=== PATIENT | female | born 1940 | race Caucasian/White ===

== ENCOUNTER 2016-10-29 11:10 | Emergency (ER) | payer MEDICARE ==
[~2016-10-29] VITALS: Ht 162.6 cm; Wt 72.5 kg
[~2016-10-29 11:10] MED LIST: ALBU0.63 NEB; CETI1TAB21 PO; FOLI200T OR; MECL25 PO; METH-60 XX; PRED5 PO; SYMB80AE INH
[2016-10-29 11:12] VITALS: BP 153/70; PULSE 90; RESP 20; TEMP 97.8; O2SAT 93
--- NOTE | 2016-10-29 11:35 | PD ---
HPI Chief Complaint: Back/ Neck Pain or Injury Time Seen by Provider: 11:34 Travel History International Travel<30 days: No Contact w/Intl Traveler<30days: No Traveled to known affect area: No History of Present Illness HPI 76-year-old female with history of low back pain presents to emergency department requesting an MRI of her lower back. Patient states this has been ongoing for the last 3-4 weeks. She has had pain in her lower back that radiates into her right buttock and sometimes down her leg. She contacted her primary care provider and had an x-ray done earlier this week. She states that there was compression noted and she would like an MRI done at this did not tell her what she wanted here. He denies any saddle paresthesia, loss of bowel or bladder, or lower extremity weakness. No other symptoms to report. Patient does not recall trauma preceding the onset of her pain. PFSH Past Medical History Hx Anticoagulant Therapy: No Arthritis: Yes Asthma: Yes Autoimmune Disease: Yes (RHEUMATOID ARTHRITIS) Blood Disorders: Yes (DVT) Cancer: No Cardiac Catheterization: Yes (2 YRS AGO) Cardiovascular Problems: No Chemotherapy: No COPD: No Cerebrovascular Accident: No Diabetes: No Endocrine: No Genitourinary: No Immune Disorder: No Musculoskeletal: Yes Neurologic: No Psychiatric: No Respiratory: Yes (Asthma) Radiation Therapy: No Sleep Apnea: No Past Surgical History Abdominal Aneurysm Repair: Yes (INCARCERATED HERNIA) Abdominal Surgery: Yes (APPENDECTOMY AND CHOLECYSTECTOMY) AICD: No Body Medical Devices: METAL IN L LEG Cardiac Surgery: No Ear Surgery: No Endocrine Surgery: No Eye Surgery: No Genitourinary Surgery: No Gynecologic Surgery: No Hysterectomy: Yes Joint Replacement: No Oral Surgery: No Pacemaker: No Thoracic Surgery: No Social History Alcohol Use: No Tobacco Use: No Substance Use: No Allergies-Medications (Allergen,Severity, Reaction): Coded Allergies: Aspirin (Verified Allergy, Severe, 10/29/16) Macrobid (Verified Allergy, Severe, 10/29/16) Sulfa (Verified Allergy, Severe, 10/29/16) Reported Meds & Prescriptions Reported Meds & Active Scripts Active Antivert (Meclizine HCl) 25 Mg Tab 25 Mg PO QIDPRN Reported Folic Acid 200 Mcg Tab 200 Mcg OR Methotrexate Pow 1 XX Symbicort (Budesonide/Formoterol Fumarate) 80 Mcg/4.5 Mcg Aer 0 INH UNKNOWN DOSE Accuneb (Albuterol Sulfate) 0.63 Mg/3 Ml Neb 0.63 Mg NEB Q4 Deltasone (Prednisone) 5 Mg Tab 5 Mg PO DAILY Zyrtec-D (Cetirizine HCl) 5 - Tab 1 Tab PO Review of Systems Except as stated in HPI: all other systems reviewed are Neg Physical Exam Narrative GENERAL: Well-nourished elderly female patient, in no acute distress SKIN: Warm and dry. HEAD: Atraumatic. Normocephalic. EYES: Pupils equal and round. No scleral icterus. No injection or drainage. ENT: No nasal bleeding or discharge. Mucous membranes pink and moist. NECK: Trachea midline. No JVD. CARDIOVASCULAR: Regular rate and rhythm. No murmur appreciated. RESPIRATORY: No accessory muscle use. Clear to auscultation. Breath sounds equal bilaterally. GASTROINTESTINAL: Abdomen soft, non-tender, nondistended. Hepatic and splenic margins not palpable. MUSCULOSKELETAL: No obvious deformities. No clubbing. No cyanosis. No edema. No midline spinal tenderness. Equal bilateral lower extremities. NEUROLOGICAL: Awake and alert. No obvious cranial nerve deficits. Motor grossly within normal limits. Normal speech. PSYCHIATRIC: Appropriate mood and affect; insight and judgment normal. Data Data Last Documented VS Vital Signs Date Time Temp Pulse Resp B/P Pulse Ox O2 Delivery O2 Flow Rate FiO2 10/29/16 11:37 82 18 10/29/16 11:12 97.8 153/[address] Lumb Spine W/O Contrast (10/29/16 ) Ketorolac Inj (Toradol Inj) (10/29/16 11:45) Orphenadrine Inj (Norflex Inj) (10/29/16 11:45) Splint Or Brace Apply/Monitor (10/29/16 11:43) Brace Quick Draw Corset (10/29/16 ) MDM Medical Decision Making Medical Screen Exam Complete: Yes Emergency Medical Condition: Yes Medical Record Reviewed: Yes Differential Diagnosis Sciatica versus low back strain versus discogenic pain versus radiculopathy Narrative Course 76-year-old female presents to the emergency department for evaluation of low back pain, requesting MRI of her spine. Patient has no focal deficits or weakness. She does report compression noted on an x-ray. I will order a CT for further evaluation of this. CT imaging shows advanced degenerative changes throughout the lumbar spine with no acute bony abnormality identified. Patient is provided a quick draw back brace and encouraged to follow-up with her primary care provider. She agrees to return immediately with any acute worsening symptoms. Diagnosis Primary Impression: Low back pain Qualified Code: M54.41 - Chronic bilateral low back pain with right-sided sciatica Additional Impression: Sciatica of right side Referrals: Primary Care Physician Patient Instructions: Back Pain (ED), General Instructions Additional Instructions: Avoid heavy lifting, bending, straining Follow-up with your primary care provider Seek pain management evaluation for alternative options to to achieving pain control Wear brace when ambulatory area do not wear this at all times as it may weaken your core muscles, worsening her back pain Continue pain medication as already prescribed Return immediately with any acute worsening symptoms Med/Other Pt SpecificInfo: No Change to Meds Disposition: 01 DISCHARGE HOME Condition: Stable Stephany Granda Oct 29, 2016 11:34
[2016-10-29] MEDS ORDERED: ORPHENADRINE INJ 60 MG/2 ML AMP IM ONE (11:45)
[2016-10-29] MEDS ORDERED: KETOROLAC TROMETHAMINE 60 MG/2 ML (IM) VIAL IM ONE (11:45)
--- NOTE | 2016-10-29 12:49 | RADRPT ---
EXAM DATE/TIME: 10/29/2016 12:15 [facility] COMPARISON: No previous studies available for comparison. INDICATIONS : Lower back pain, numbness and tingling in both feet. RADIATION DOSE: 24.33 CTDIvol (mGy) MEDICAL HISTORY : Cardiovascular disease. SURGICAL HISTORY : Appendectomy. Cholecystectomy.Bilateral total hip replacements. ENCOUNTER: Initial ACUITY: 1 day PAIN SCALE: 6/10 LOCATION: Right flank TECHNIQUE: Volumetric scanning of the lumbar spine was performed. Multiplanar reconstructions in the sagittal, coronal and oblique axial planes were performed. Using automated exposure control and adjustment of the mA and/or kV according to patient size, radiation dose was kept as low as reasonably achievable t o obtain optimal diagnostic quality images. FINDINGS: Sagittal and coronal reformats demonstrate minimal anterolisthesis of L4 relative to L5. There are se verely degenerated discs throughout the lumbar spine. There is a mild convex left scoliosis. No acute fracture is seen. No destructive lesions are identified. The paraspinous soft tissues demonstrate atherosclerotic plaquing in the aorta but are otherwise unre markable. T12-L1: The thecal sac has a normal diameter. No evidence of disc bulge or protrusion. The neural foramina are patent bilaterally. L1-L2: There is minimal broad-based disc bulge. The thecal space and neural foramina are adequate. L2-L3: There is a degenerated disc with a broad-based disc bulge and diffuse osteophytic ridging. This effac es the ventral thecal sac. The residual thecal space is narrowed but adequate. The foramina appear ad equate. There is moderate facet arthritis bilaterally. L3-L4: There is a severely degenerated disc with a broad-based disc bulge and diffuse osteophytic ridging. T his effaces the ventral thecal sac. There is encroachment of disc material osteophytic spur of the la teral recess and foramina on the right. The foramina on the left appears adequate. L4-L5: There is a degenerated disc with a broad-based disc bulge. This effaces the ventral thecal sac. There is some slight encroachment of disc material on the lateral recess and base of the foramina bilatera lly. There is mild facet arthritis bilaterally. L5-S1: The thecal sac has a normal diameter. No evidence of disc bulge or protrusion. The neural foramina are patent bilaterally. There is moderate facet arthritis bilaterally. CONCLUSION: 1. 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 No acute abnormality identified. Juan Luis Richards MD on October 29, 2016 at 12:43 Board Certified Radiologist. This report was verified electronically.
== END 2016-10-29 13:42 | disposition home or self-care (01) ==
LOC: NEPC 11:10
DX: M54.5 Low back pain (principal); M54.31 Sciatica, right side; M06.9 Rheumatoid arthritis, unspecified
CPT/HCPCS: 72131; 96372; 99283; J1885; J2360; L0627